=== PATIENT | male | born 1965 | race Two or more races ===

== ENCOUNTER 2017-05-02 14:16 | Emergency (ER) | payer OTHER ==
[~2017-05-02] VITALS: Ht 160 cm; Wt 79.4 kg
== END 2017-05-02 15:20 | disposition home or self-care (01) ==
LOC: CFTX 14:16 → CED 14:16 → CFTX 14:52
DX: S61.213A Laceration without foreign body of left middle finger without damage to nail, initial encounter (principal); Z23 Encounter for immunization; W26.9XXA Contact with unspecified sharp object(s), initial encounter; Y92.009 Unspecified place in unspecified non-institutional (private) residence as the place of occurrence of the external cause
CPT/HCPCS: 12001; 90471; 90715; 99283